=== PATIENT | male | born 2000 | race Caucasian/White ===

== ENCOUNTER 2021-05-28 14:56 | Emergency (ER) | payer SELFPAY ==
[~2021-05-28] VITALS: Ht 180.3 cm; Wt 93.9 kg
[2021-05-28 15:10] VITALS: BP 120/69
[2021-05-28] MEDS ORDERED: ACET-8386 PO (16:18)
--- NOTE | 2021-05-28 16:25 | NUR ---
NO NURSING INTERVENTIONS PROVIDED
[2021-05-28 16:27] VITALS: BP 120/69
--- NOTE | 2021-05-28 16:27 | NUR ---
Patient discharged with v/s stable. Written and verbal after care instructions ABOUT ANKLE FRACTURE given and explained. Patient alert, oriented and verbalized understanding of instructions. Ambulatory with steady gait. All questions addressed prior to discharge. ID band removed. Patient advised to follow up with PMD. Rx of NORCO 5-325 given. Patient educated on indication of medication including possible reaction and side effects. Opportunity to ask questions provided and answered.
== END 2021-05-28 16:27 | disposition home or self-care (01) ==
LOC: MED 14:56
DX: S82.61XA Displaced fracture of lateral malleolus of right fibula, initial encounter for closed fracture (principal); X58.XXXA Exposure to other specified factors, initial encounter; Y93.01 Activity, walking, marching and hiking; Y92.89 Other specified places as the place of occurrence of the external cause; Y99.8 Other external cause status
CPT/HCPCS: 29515; 73610; 73630; 99284; Q0092